=== PATIENT | male | born 1970 | race Caucasian/White ===

== ENCOUNTER 2017-02-19 13:37 | Emergency (ER) | payer MEDICAID ==
[~2017-02-19] VITALS: Ht 177.8 cm; Wt 94.7 kg
[2017-02-19 13:39] VITALS: BP 130/89
[2017-02-19] MEDS ORDERED: DEXAMETHASONE 4 MG TABLET PO ONE (14:00)
[2017-02-19] MEDS ORDERED: DEXAMETHASONE 4 MG TABLET ONE (14:16)
== END 2017-02-19 14:27 | disposition home or self-care (01) ==
LOC: ED 14:15
DX: J03.00 Acute streptococcal tonsillitis, unspecified (principal); K12.2 Cellulitis and abscess of mouth; J02.9 Acute pharyngitis, unspecified
CPT/HCPCS: 99283